=== PATIENT | male | born 1955 | race Caucasian/White ===

== ENCOUNTER → 2017-08-05 09:50 | Outpatient (CLI) | payer BC, SELFPAY ==
[2017-08-05 09:58] LABS: Microscopic, Urine URINE MICROSCOPIC (MICROSCOPIC)
[2017-08-05 10:07] LABS: Basophils # 0.1 K/mm3 (0-0.2); Basophils % 0.5 % (0.1-2.0); Eosinophils # 0.4 K/mm3 (0.0-0.4); Eosinophils % 4.3 % (0.1-12.0); Hematocrit 48.8 % (42.0-52.0); Hemoglobin 16.2 g/dL (14.1-18.0); Lymphocytes # 3.5 K/mm3 (0.7-4.5); Lymphocytes % 37.9 K/mm3 (10-50); Mean Corpuscular HGB Conc 33.3 g/dL (31.8-35.4); Mean Corpuscular Hemoglobin 31.8 pg (27.0-31.2); Mean Corpuscular Volume 95.6 fl (80-94); Mean Platelet Volume 8.2 fl (7.4-10.4); Monocytes # 0.6 K/mm3 (0.1-1.0); Monocytes % 6.1 % (1.7-9.3); Neutrophils # 4.7 K/mm3 (1.8-7.8); Neutrophils % 51.2 % (37.0-80.0); Platelet Count 273 K/mm3 (142-424); Red Cell Distribution Width 13.4 % (11.5-17.5); White Blood Count 9.3 K/mm3 (4.8-10.8)
[2017-08-05 10:17] LABS: Appearance,Urine CLEAR (Clear); Bilirubin,Urine Negative (Negative); Blood, Urine Negative (Negative); Color,Urine YELLOW (Yellow); Glucose,Urine (UA) Negative (Negative); Ketones,Urine Negative (Negative); Leukocyte Esterase,Urine Negative (Negative); Nitrate,Urine Negative (Negative); Protein,Urine Negative (Negative); Specific Gravity, Urine 1.025 (1.005-1.030); Urobilinogen,Urine 0.2 EU/dl (0.2)
[2017-08-05 10:27] LABS: Squamous Epithelial Cell,Urine Occasional #/hpf (0-5)
[2017-08-05 11:31] LABS: Alanine Aminotransferase 73 U/L (12-78); Albumin Level 3.9 gm/dL (3.4-5.0); Albumin/Globulin Ratio 1.3 (1.1-1.8); Alkaline Phosphatase 61 U/L (46-116); Anion Gap 12.5 mEq/L (5-15); Aspartate Amino Transferase 28 U/L (15-37); Bilirubin,Total 0.4 mg/dL (0.2-1.0); Blood Urea Nitrogen 22 mg/dL (7-18); Carbon Dioxide 27 mmol/L (21.0-32.0); Chloride 103 mmol/L (98-107); Chol/HDL Ratio 3.5 (1-3.5); Cholesterol 192 mg/dL (140-200); Creatinine,Serum 0.92 mg/dL (0.70-1.30); Estimated Glomerular Filt Rate 84 ml/min (>60); Free T4 (Free Thyroxine) 0.92 ng/dl (0.76-1.46); GFR (African American) 102 ML/MIN (>60); Globulin 3.1 gm/dl (1.3-3.2); Glucose 156 mg/dL (74-106); HDL Cholesterol 55 mg/dL (27-67); LDL Cholesterol 117 mg/dL (0-130); Potassium 4.5 mmoL/L (3.5-5.1); Sodium 138 mmol/L (136-145); Thyroid Stimulating Hormone 3.16 uIU/ml (0.358-3.740); Triglycerides 101 mg/dL (30-200); VLDL Cholesterol 20 mg/dL (0-40)
[2017-08-05 12:40] LABS: Prostate Specific Ag Screen 0.6 ng/mL (0.0-4.0)
[2017-08-06 11:18] LABS: Creatinine, Urine 183.8 mg/dL (Not Estab.); Microalbumin, Urine 16.4 ug/mL (Not Estab.)
== END ==
PROVIDERS: PCP Family Medicine; Visit Provider Family Medicine
DX: E11.9 Type 2 diabetes mellitus without complications (principal); I10 Essential (primary) hypertension; E78.5 Hyperlipidemia, unspecified; E66.9 Obesity, unspecified; N40.0 Benign prostatic hyperplasia without lower urinary tract symptoms; R35.1 Nocturia
CPT/HCPCS: 36415; 80053; 80061; 81001; 82043; 82570; 84439; 84443; 85025; G0103

== ENCOUNTER → 2019-12-30 08:39 | Outpatient (CLI) | payer BC, SELFPAY ==
[2019-12-30 08:43] LABS: Microscopic, Urine URINE MICROSCOPIC (MICROSCOPIC)
[2019-12-30 09:04] LABS: Appearance,Urine CLEAR (Clear); Basophils # 0.1 K/mm3 (0-0.2); Basophils % 0.5 % (0.1-2.0); Bilirubin,Urine Negative (Negative); Blood, Urine Negative (Negative); Color,Urine YELLOW (Yellow); Eosinophils # 0.2 K/mm3 (0.0-0.4); Eosinophils % 2.3 % (0.1-12.0); Glucose,Urine (UA) Negative (Negative); Hematocrit 45.9 % (42.0-52.0); Ketones,Urine 1+ (Negative); Leukocyte Esterase,Urine Negative (Negative); Lymphocytes # 3.6 K/mm3 (0.7-4.5); Lymphocytes % 40.1 % (10-50); Mean Corpuscular HGB Conc 34.9 g/dL (31.8-35.4); Mean Corpuscular Hemoglobin 33.7 pg (27.0-31.2); Mean Corpuscular Volume 96.6 fl (80-94); Mean Platelet Volume 8.6 fl (7.4-10.4); Monocytes # 0.5 K/mm3 (0.1-1.0); Monocytes % 5.3 % (1.7-9.3); Neutrophils # 4.6 K/mm3 (1.8-7.8); Neutrophils % 51.7 % (37.0-80.0); Nitrate,Urine Negative (Negative); Platelet Count 239 K/mm3 (142-424); Protein,Urine Negative (Negative); Red Blood Count 4.76 M/mm3 (4.60-6.20); Red Cell Distribution Width 13.8 % (11.5-17.5); Specific Gravity, Urine 1.025 (1.005-1.030); Urobilinogen,Urine 0.2 EU/dl (0.2); White Blood Count 8.9 K/mm3 (4.8-10.8)
[2019-12-30 09:22] LABS: RBC,Urine Occasional #/hpf (0-3); Squamous Epithelial Cell,Urine Occasional #/hpf (0-5); WBC,Urine Occasional #/hpf (0-3)
[2019-12-30 09:43] LABS: Alanine Aminotransferase 94 U/L (12-78); Albumin Level 4.5 g/dl (3.5-5.0); Albumin/Globulin Ratio 1.6 (1.1-1.8); Alkaline Phosphatase 97 U/L (38-126); Anion Gap 13.4 mEq/L (5-15); Aspartate Amino Transferase 81 U/L (17-59); Bilirubin,Total 0.5 mg/dl (0.2-1.3); Blood Urea Nitrogen 21 mg/dl (9-20); Calcium 9.4 mg/dl (8.4-10.2); Carbon Dioxide 25 mmol/L (22.0-30.0); Chloride 101 mmol/L (98-107); Chol/HDL Ratio 2.8 (1-3.5); Cholesterol 185 mg/dl (140-200); Estimated Glomerular Filt Rate 114 ml/min (>60); GFR (African American) 138 ML/MIN (>60); Globulin 2.8 g/dL (1.3-3.2); Glucose 182 mg/dl (74-100); HDL Cholesterol 66 mg/dl (40-60); Potassium 4.4 mmoL/L (3.5-5.1); Sodium 135 mmol/L (136-145); Total Protein,Serum 7.3 g/dl (6.3-8.2); Triglycerides 132 mg/dl (30-150); VLDL Cholesterol 26 mg/dL (0-40)
[2019-12-30 09:55] LABS: Direct LDL Cholesterol 116.42 mg/dL (100-129)
[2019-12-30 10:00] LABS: Free T4 (Free Thyroxine) 1.11 ng/dl (0.78-2.19)
[2019-12-30 10:15] LABS: Prostate Specific Ag Screen 0.6 ng/ml (0.0-4.0)
[2019-12-31 11:16] LABS: Vitamin B12 516 pg/mL (232-1245)
[2019-12-31 12:02] LABS: Folate 8.4 ng/mL (>3.0)
== END ==
PROVIDERS: Visit Provider Family Medicine
DX: R53.83 Other fatigue (principal); I10 Essential (primary) hypertension; E11.9 Type 2 diabetes mellitus without complications; N40.0 Benign prostatic hyperplasia without lower urinary tract symptoms; R00.0 Tachycardia, unspecified
CPT/HCPCS: 36415; 80053; 80061; 81001; 82607; 82746; 84439; 84443; 85025; G0103

== ENCOUNTER → 2021-11-19 08:26 | Outpatient (CLI) | payer BC, SELFPAY ==
[2021-11-19 08:51] LABS: Microscopic, Urine URINE MICROSCOPIC (MICROSCOPIC)
[2021-11-19 09:05] LABS: Basophils # 0.2 K/mm3 (0-0.2); Basophils % 2.8 % (0.1-2.0); Eosinophils # 0.2 K/mm3 (0.0-0.4); Eosinophils % 2.2 % (0.1-12.0); Hematocrit 48.8 % (42.0-52.0); Hemoglobin 16.1 g/dL (14.1-18.0); Lymphocytes % 35.7 % (10-50); Mean Corpuscular Hemoglobin 33.7 pg (27.0-31.2); Mean Corpuscular Volume 102.2 fl (80-94); Mean Platelet Volume 8.4 fl (7.4-10.4); Monocytes # 0.5 K/mm3 (0.1-1.0); Monocytes % 6.1 % (1.7-9.3); Neutrophils # 4.4 K/mm3 (1.8-7.8); Neutrophils % 53.1 % (37.0-80.0); Platelet Count 289 K/mm3 (142-424); Red Blood Count 4.77 M/mm3 (4.60-6.20); Red Cell Distribution Width 13.8 % (11.5-17.5); White Blood Count 8.3 K/mm3 (4.8-10.8)
[2021-11-19 09:44] LABS: Alanine Aminotransferase 127 U/L (12-78); Albumin Level 4.4 g/dl (3.5-5.0); Albumin/Globulin Ratio 1.6 (1.1-1.8); Alkaline Phosphatase 76 U/L (38-126); Amylase 33 U/L (30-110); Anion Gap 14.8 mEq/L (5-15); Aspartate Amino Transferase 113 U/L (17-59); Bilirubin,Total 0.2 mg/dl (0.2-1.3); Blood Urea Nitrogen 18 mg/dl (9-20); Calcium 9.9 mg/dl (8.4-10.2); Carbon Dioxide 26 mmol/L (22.0-30.0); Chloride 102 mmol/L (98-107); Cholesterol 245 mg/dl (140-200); Estimated Glomerular Filt Rate 75 ml/min (>60); GFR (African American) 91 ML/MIN (>60); Globulin 2.7 g/dL (1.3-3.2); Glucose 89 mg/dl (74-100); HDL Cholesterol 62 mg/dl (40-60); Lipase 32 U/L (23-300); Potassium 4.8 mmoL/L (3.5-5.1); Sodium 138 mmol/L (136-145); Total Protein,Serum 7.1 g/dl (6.3-8.2); Triglycerides 193 mg/dl (30-150); VLDL Cholesterol 39 mg/dL (0-40)
[2021-11-19 10:01] LABS: Free T4 (Free Thyroxine) 0.98 ng/dl (0.78-2.19)
[2021-11-19 10:15] LABS: Prostate Specific Ag Screen 0.8 ng/ml (0.0-4.0); Thyroid Stimulating Hormone 1.76 uIU/mL (0.465-4.68)
[2021-11-19 15:43] LABS: Appearance,Urine CLEAR (Clear); Bilirubin,Urine Negative (Negative); Blood, Urine Negative (Negative); Color,Urine YELLOW (Yellow); Glucose,Urine (UA) Negative (Negative); Ketones,Urine 1+ (Negative); Leukocyte Esterase,Urine Negative (Negative); Nitrate,Urine Negative (Negative); PH,Urine 5.5 (5.0-8.5); Protein,Urine TRACE (Negative); Specific Gravity, Urine >= 1.030 (1.005-1.030); Urobilinogen,Urine 0.2 EU/dl (0.2)
[2021-11-19 15:58] LABS: Bacteria,Urine Trace /lpf; Microalbumin/Creatinine Ratio 26.5; Mucus,Urine 2+ /lpf; Squamous Epithelial Cell,Urine Occasional #/hpf (0-5); WBC,Urine Occasional #/hpf (0-3)
[2021-11-19 15:59] LABS: Creatinine,Urine Random 299 mg/dL (Not Estab.)
== END ==
PROVIDERS: PCP Family Medicine; Visit Provider Family Medicine
DX: I25.10 Atherosclerotic heart disease of native coronary artery without angina pectoris (principal); I10 Essential (primary) hypertension; E78.5 Hyperlipidemia, unspecified; E11.9 Type 2 diabetes mellitus without complications; R97.20 Elevated prostate specific antigen [PSA]; R35.1 Nocturia; Z12.5 Encounter for screening for malignant neoplasm of prostate
CPT/HCPCS: 36415; 80053; 80061; 81001; 82043; 82150; 82570; 83690; 84439; 84443; 85025; G0103

== ENCOUNTER → 2022-05-11 07:52 | Outpatient (CLI) | payer BC, SELFPAY ==
--- NOTE | 2022-05-11 07:54 | FL_ITS ---
FINAL REPORT CLINICAL HISTORY: Dysphagia, epigastric pain. FINDINGS: ESOPHAGRAM HISTORY: Dysphagia, epigastric pain. TECHNIQUE: Patient ingested thick and thin barium contrast. Spot and overhead films were performed. A total of 19 images were saved. FINDINGS: The esophagus demonstrates a small sliding-type hiatal hernia. There is gastroesophageal reflux to the thoracic inlet. No mucosal defects are seen. There is mild esophageal dysmotility. No changes of esophagitis are evident. FLUOROSCOPY TIME: 47 seconds. IMPRESSION: Small hiatal hernia with gastroesophageal reflux. Mild esophageal dysmotility. Reviewed, Interpreted and Dictated by Triston Ba MD Transcribed by Zulema Chavez PA-C Authenticated and [facility]
== END ==
PROVIDERS: PCP Emergency Medicine; Visit Provider Emergency Medicine
DX: R13.10 Dysphagia, unspecified (principal)
CPT/HCPCS: 74220

== ENCOUNTER → 2022-05-15 08:59 | Outpatient (CLI) | payer BC, SELFPAY ==
[2022-05-15 09:04] LABS: MANUAL DIFFERENTIAL MANUAL DIFFERENTIAL (MANUAL DIFF)
[2022-05-15 09:22] LABS: Basophils # 0.2 K/mm3 (0-0.2); Basophils % 1.6 % (0.1-2.0); Eosinophils # 0.2 K/mm3 (0.0-0.4); Eosinophils % 2.1 % (0.1-12.0); Hematocrit 52.9 % (42.0-52.0); Hemoglobin 16.8 g/dL (14.1-18.0); Lymphocytes # 3.4 K/mm3 (0.7-4.5); Lymphocytes % 31.8 % (10-50); Mean Corpuscular HGB Conc 31.7 g/dL (31.8-35.4); Mean Corpuscular Hemoglobin 33.6 pg (27.0-31.2); Mean Corpuscular Volume 105.8 fl (80-94); Monocytes # 0.7 K/mm3 (0.1-1.0); Monocytes % 6.5 % (1.7-9.3); Neutrophils # 6.2 K/mm3 (1.8-7.8); Platelet Count 276 K/mm3 (142-424); Red Cell Distribution Width 13.9 % (11.5-17.5); White Blood Count 10.6 K/mm3 (4.8-10.8)
[2022-05-15 10:04] LABS: Erythrocyte Sedimentation Rate 17 mm/hr (0-20)
[2022-05-15 10:08] LABS: Eosinophils % 1 % (0-3); Lymphocytes % 33 % (10-50); Macrocytosis 2+; Monocytes % 5 % (2-9); Neutrophils % 59 % (42-76); Platelet Estimate Normal; Total Cells Counted 100
[2022-05-15 10:20] LABS: Chloride 96 mmol/L (98-107); Potassium 4.7 mmoL/L (3.5-5.1); Sodium 137 mmol/L (136-145)
[2022-05-15 10:22] LABS: Blood Urea Nitrogen 15 mg/dl (9-20); Estimated Glomerular Filt Rate 75 ml/min (>60); GFR (African American) 91 ML/MIN (>60)
[2022-05-15 10:23] LABS: Alanine Aminotransferase 54 U/L (12-78); Albumin Level 4.3 g/dl (3.5-5.0); Albumin/Globulin Ratio 1.6 (1.1-1.8); Alkaline Phosphatase 86 U/L (38-126); Anion Gap 15.7 mEq/L (5-15); Aspartate Amino Transferase 66 U/L (17-59); Bilirubin,Total 0.7 mg/dl (0.2-1.3); Calcium 10.3 mg/dl (8.4-10.2); Carbon Dioxide 30 mmol/L (22.0-30.0); Globulin 2.7 g/dL (1.3-3.2); Glucose 178 mg/dl (74-100)
[2022-05-15 11:06] LABS: Ammonia < 9 umol/L (9-30)
[2022-05-15 11:35] LABS: Vitamin B12 553 pg/mL (239-931)
[2022-05-15 11:37] LABS: Folate 5.15 ng/mL
[2022-05-18 19:59] LABS: Vitamin B1 115.4 nmol/L (66.5-200.0)
== END ==
PROVIDERS: PCP Emergency Medicine; Visit Provider Specialist
DX: R25.1 Tremor, unspecified (principal); R27.8 Other lack of coordination; R79.89 Other specified abnormal findings of blood chemistry
CPT/HCPCS: 36415; 80053; 82140; 82390; 82607; 82746; 84425; 85007; 85014; 85018; 85048; 85049; 85651

== ENCOUNTER → 2022-05-23 09:58 | Outpatient (CLI) | payer BC, SELFPAY ==
--- NOTE | 2022-05-23 10:29 | MR_ITS ---
FINAL REPORT CLINICAL HISTORY: DIZZINESS TREMORS STARTED IN DECEMBER 2021 FINDINGS: Multi planar MR imaging was obtained through the brain without contrast. There is mild atrophy. The midline structures appear intact. There is no evidence of Chiari malformation. On T2 and flair axial images the brain parenchyma is homogeneous. On diffusion-weighted images there is no evidence of restricted diffusion. There is extensive lobular abnormal signal throughout the frontal sinuses, ethmoid air cells, left maxillary sinus and sphenoid sinuses. The mastoid air cells are well aerated. The seventh and eighth nerve root complexes are intact. IMPRESSION: Essentially unremarkable nonenhanced brain MRI. Extensive chronic pansinusitis. Reviewed, Interpreted and Dictated by Triston Ba MD Transcribed by Stella Hart Authenticated and [facility]
[2022-05-24 18:07] LABS: Calcium, Ionized 5.9 mg/dL (4.5-5.6)
[2022-06-09 20:29] LABS: PTH Related Peptide < 2.0
== END ==
PROVIDERS: Specialist; PCP Emergency Medicine; Visit Provider Nurse Practitioner Family
DX: R27.8 Other lack of coordination (principal); R25.1 Tremor, unspecified; E83.52 Hypercalcemia
CPT/HCPCS: 36415; 70551; 82330; 82397

== ENCOUNTER → 2022-06-01 10:21 | Outpatient (CLI) | payer BC, SELFPAY | PROVIDERS: PCP Emergency Medicine; Visit Provider Specialist | DX: J44.9 Chronic obstructive pulmonary disease, unspecified (principal) ==

== ENCOUNTER 2022-06-12 12:32 | Day surgery (SDC) | payer BC, SELFPAY ==
[2022-06-11 08:49] VITALS: BMI 28.8
--- NOTE | 2022-06-11 09:05 | SUR.PREOP ---
Pt on Xarelto for stents in his legs placed 20 years ago. Has not been instructed on stopping for EGD tomorrow. TC to Dr. Jeter who is prescriber and spoke with Chanel. Said okay to hold Xarelto today. Pt aware.
[2022-06-12 12:48] VITALS: BP 129/77; PULSE 103; RESP 18; TEMP 36.4; O2SAT 96
[2022-06-12 12:55] LABS: POC Glucose,Bedside 167 (70-110)
[2022-06-12 13:02] VITALS: O2SAT 96
--- NOTE | 2022-06-12 13:17 | P.PN_ITS ---
[facility] Disclaimer: The information contained in this section may have been updated after the patient was seen, as this information can be updated by other users. Medical History (Updated 06/12/22 @ 12:55 by Merry Kirby RN) Arthritis Diabetes 1.5, managed as type 2 Diabetes mellitus, type 2 Emphysema/COPD Encounter for cholecystectomy Hyperlipidemia Hypertension Lymphoma of lymph nodes Psoriasiform eczema Rapid heart rate Seasonal allergies Stomach disease Surgical History H/O left heart catheterization by ventricular puncture History of cholecystectomy Family History Other No significant family history Social History (Updated 06/12/22 @ 12:55 by Merry Kirby RN) Smoking Status: Current every day smoker alcohol intake: current substance use type: denies use current occupational status: retired Travel in the last 8 weeks: None caffeine: Yes [facility] Anesthesia Checklist Patient Identification Patient Identification: Arm Band Structural Data Admitted From: Home Planned Operative Procedure/s: egd Consent for Planned Operative Procedure(s) Verified: Yes Verified Documents: Surgical Consent and History and Physical NPO Status Verified Time NPO: 00:00 Additional verifications Anesthesia Reactions: No Airway Assessment C-Spine Mobility Assessed: Yes TMJ Mobility Assessed: Yes Dentition: Good Dentition Neurological Assessment Level of Consciousness: Awake and Alert Anesthesia Plan Anesthesia Risk discussed: Yes Anesthesia Plan: Verified ASA Class: III Anesthesia Type: MAC
[2022-06-12 13:20] VITALS: BP 104/67; PULSE 83; RESP 18; TEMP 36.3; O2SAT 93
--- NOTE | 2022-06-12 13:20 | HMH.SCOPE ---
Procedure: Date: 06/12/22 Patient Date of :: 1955 Procedure Performed:: Esophagogastroduodenoscopy with biopsy Indications:: Upper abdominal pain Performing Provider:: Bruce Edmond MD Referring Provider:: . Sedation:: Monitored anesthesia care Procedure:: After informed consent was obtained the patient was taken to the endoscopy suite. Sedation ensued after the patient was transferred to the left lateral decubitus position. Pulse, blood pressure, and oxygen saturation were monitored throughout the procedure. The endoscope was advanced beyond the duodenal bulb. Retroflexion within the gastric lumen was accomplished. The gastroscope was carefully removed and the patient was transferred to recovery in stable condition. Please see findings and specimens below for detail. Findings:: Gastroesophageal junction at 40 cm Small shallow sliding hiatal hernia Moderate tortuosity of the distal esophagus Mild to moderate gastritis Duodenal bulb polyp Specimens:: Duodenal bulb polyp biopsy Antral biopsy Recommendations:: Follow-up pathology Proton pump inhibition Consider gastroenterology consultation; consider UGI/SBFT; consider gastric emptying scan Complications:: No immediate Estimated blood obtained (mL): 1
[2022-06-12 13:30] VITALS: BP 110/72; PULSE 75; RESP 17; O2SAT 92
[2022-06-12 13:40] VITALS: BP 153/91; PULSE 74; RESP 16; O2SAT 95
[2022-06-12 13:52] VITALS: BP 129/76; PULSE 76; RESP 17; O2SAT 96
== END 2022-06-12 13:55 | disposition home or self-care (01) ==
PROVIDERS: PCP Emergency Medicine; Visit Provider Surgery
PROC: 0DJ08ZZ Inspection of Upper Intestinal Tract, Via Natural or Artificial Opening Endoscopic (ICD-10-PCS; CPT 43235; principal; 2022-06-12 13:30)
DX: R10.13 Epigastric pain (principal); K44.9 Diaphragmatic hernia without obstruction or gangrene; K29.70 Gastritis, unspecified, without bleeding; Z79.899 Other long term (current) drug therapy; E11.9 Type 2 diabetes mellitus without complications
CPT/HCPCS: 43239; 82962

== ENCOUNTER → 2022-06-14 14:21 | Outpatient (CLI) | payer BC, SELFPAY | PROVIDERS: PCP Emergency Medicine; Visit Provider Specialist | DX: J44.9 Chronic obstructive pulmonary disease, unspecified (principal) | CPT/HCPCS: 94762 ==

== ENCOUNTER 2023-01-21 11:49 | Emergency (ER) | payer MEDICARE, BC, SELFPAY ==
[2023-01-21] VITALS (12 sets, daily range): BP systolic 137–170; BP diastolic 80–93; PULSE 77–95; RESP 20; TEMP 36.8; O2SAT 96–99; BMI 29.6
--- NOTE | 2023-01-21 11:49 | ECG_ITS ---
APPROVED REPORT Exam: Resting ECG HR:101 bpm ECG Measurements Heart Rate 101 AXES DE 163 P 76 QRSd 90 QRS 65 QT 315 T 45 QTc 373 Conclusion SINUS TACHYCARDIA ABNORMAL RHYTHM ECG UNCONFIRMED REPORT Electronically signed by : Venkata Moran MD 01/21/2023 19:48:55
--- NOTE | 2023-01-21 12:07 | XR_ITS ---
FINAL REPORT CLINICAL HISTORY: Precordial chest pain COMPARISON: None FINDINGS: A single portable view of the chest was obtained. The heart size and pulmonary vascularity are within normal limits. The mediastinum is within normal limits. No acute pulmonary abnormality is identified. The bony thorax is intact. IMPRESSION: No active cardiopulmonary disease. Reviewed, Interpreted and Dictated by Chavo Dietrich III, MD Transcribed by Stormy Pop Authenticated and [facility]
[2023-01-21 12:19] LABS: Basophils % 0.4 % (0.1-2.0); Eosinophils # 0.2 K/mm3 (0.0-0.4); Eosinophils % 1.9 % (0.1-12.0); Hematocrit 53.7 % (42.0-52.0); Lymphocytes # 2.5 K/mm3 (0.7-4.5); Lymphocytes % 29.5 % (10-50); Mean Corpuscular HGB Conc 31.7 g/dL (31.8-35.4); Mean Corpuscular Hemoglobin 32.4 pg (27.0-31.2); Mean Corpuscular Volume 102.4 fl (80-94); Mean Platelet Volume 8.3 fl (7.4-10.4); Monocytes # 0.6 K/mm3 (0.1-1.0); Monocytes % 6.5 % (1.7-9.3); Neutrophils # 5.3 K/mm3 (1.8-7.8); Neutrophils % 61.7 % (37.0-80.0); Platelet Count 310 K/mm3 (142-424); Red Blood Count 5.24 M/mm3 (4.60-6.20); Red Cell Distribution Width 13.8 % (11.5-17.5); White Blood Count 8.6 K/mm3 (4.8-10.8)
[2023-01-21 12:21] LABS: Chloride 97 mmol/L (98-107); Potassium 4.8 mmoL/L (3.5-5.1); Sodium 134 mmol/L (136-145)
[2023-01-21 12:24] LABS: Alanine Aminotransferase 88 U/L (12-78); Albumin Level 4.6 g/dl (3.5-5.0); Albumin/Globulin Ratio 1.4 (1.1-1.8); Alkaline Phosphatase 79 U/L (38-126); Anion Gap 15.8 mEq/L (5-15); Aspartate Amino Transferase 87 U/L (17-59); Bilirubin,Total 0.7 mg/dl (0.2-1.3); Blood Urea Nitrogen 22 mg/dl (9-20); Carbon Dioxide 26 mmol/L (22.0-30.0); Creatinine Clearance Estimated 92 mL/min (50-200); Estimated Glomerular Filt Rate 75 ml/min (>60); GFR (African American) 91 ML/MIN (>60); Globulin 3.3 g/dL (1.3-3.2); Total Protein,Serum 7.9 g/dl (6.3-8.2)
[2023-01-21 12:25] LABS: Calcium 10.3 mg/dl (8.4-10.2); Glucose 376 mg/dl (74-100)
--- NOTE | 2023-01-21 12:41 | HMH.EDGENADL ---
Discharge Plan Disposition Patient Disposition: Home, Self-Care Prescriptions Prescriptions: No Action Livalo 4 mg tablet 4 mg PO DAILY (DME) insulin syringe-needle U-100 [BD Insulin Syringe Ultra-Fine] 1 mL 31 gauge x 5/16 syringe See Rx Instructions .Route Rx Instructions: As directed nitroglycerin 0.4 mg tablet, sublingual 0.4 mg sublingual Q5M PRN (Reason: CP) Rx Instructions: do not exceed 3 doses per episode meloxicam 7.5 mg tablet 7.5 mg PO cetirizine 10 mg tablet 10 mg PO fluticasone propionate [Flonase Allergy Relief] 50 mcg/actuation spray,suspension 2 spray intranasal DAILY Qty: 16 3RF Rx Instructions: administer into each nostril azelastine 137 mcg (0.1 %) aerosol,spray 2 spray intranasal DAILY Qty: 30 3RF Rx Instructions: administer into each nostril All Day Allergy (cetirizine) 10 mg capsule 10 mg PO DAILY 30 Days Qty: 30 3RF sucralfate 1 gram tablet See Rx Instructions .ROUTE .COMPLEX Qty: 60 2RF Dose Instruction: TAKE ONE TABLET BY MOUTH 2 TIMES A DAY Rx Instructions: TAKE ONE TABLET BY MOUTH 2 TIMES A DAY Spiriva Respimat 2.5 mcg/actuation mist See Rx Instructions .ROUTE .COMPLEX Qty: 4 2RF Dose Instruction: INHALE 2 PUFFS BY MOUTH ONCE A DAY Rx Instructions: INHALE 2 PUFFS BY MOUTH ONCE A DAY budesonide-formoterol [Symbicort] 160-4.5 mcg/actuation HFA aerosol inhaler See Rx Instructions .ROUTE .COMPLEX Qty: 10.2 2RF Dose Instruction: INHALE 2 PUFFS BY MOUTH TWICE A DAY Rx Instructions: INHALE 2 PUFFS BY MOUTH TWICE A DAY albuterol sulfate 90 mcg/actuation HFA aerosol inhaler See Rx Instructions .ROUTE .COMPLEX Qty: 8.5 2RF Dose Instruction: INHALE 2 PUFFS BY MOUTH EVERY 4 TO 6 HOURS NEEDED SHORTNESS OF BREATH OR WHEEZING Rx Instructions: INHALE 2 PUFFS BY MOUTH EVERY 4 TO 6 HOURS NEEDED SHORTNESS OF BREATH OR WHEEZING metoclopramide HCl 10 mg tablet See Rx Instructions .ROUTE .COMPLEX Qty: 90 2RF Dose Instruction: TAKE ONE TABLET BY MOUTH 3 TIMES A DAY 30 MINUTES BEFORE MEALS FOR STOMACH Rx Instructions: TAKE ONE TABLET BY MOUTH 3 TIMES A DAY 30 MINUTES BEFORE MEALS FOR STOMACH esomeprazole magnesium 40 mg capsule,delayed release(DR/EC) See Rx Instructions .ROUTE .COMPLEX Qty: 30 2RF Dose Instruction: TAKE ONE CAPSULE BY MOUTH ONCE A DAY FOR ACID REFLUX Rx Instructions: TAKE ONE CAPSULE BY MOUTH ONCE A DAY FOR ACID REFLUX metformin 500 mg tablet See Rx Instructions .ROUTE .COMPLEX Qty: 60 2RF Dose Instruction: TAKE 1 TABLET BY MOUTH 2 TIMES A DAY FOR HIGH BLOOD SUGAR Rx Instructions: TAKE 1 TABLET BY MOUTH 2 TIMES A DAY FOR HIGH BLOOD SUGAR (DME) OneTouch Ultra Test Strip See Rx Instructions .Route Qty: 100 2RF Rx Instructions: As directed montelukast 10 mg tablet See Rx Instructions .ROUTE .COMPLEX Qty: 30 2RF Dose Instruction: TAKE ONE TABLET BY MOUTH EVERY NIGHT FOR ALLERGIES/ASTHMA Rx Instructions: TAKE ONE TABLET BY MOUTH EVERY NIGHT FOR ALLERGIES/ASTHMA Xarelto 2.5 mg tablet See Rx Instructions .ROUTE .COMPLEX Qty: 30 2RF Dose Instruction: TAKE ONE TABLET BY MOUTH ONCE A DAY TO PREVENT BLOOD CLOTTING Rx Instructions: TAKE ONE TABLET BY MOUTH ONCE A DAY TO PREVENT BLOOD CLOTTING metoprolol tartrate 25 mg tablet See Rx Instructions .ROUTE .COMPLEX Qty: 60 2RF Dose Instruction: TAKE ONE TABLET BY MOUTH 2 TIMES A DAY FOR HEART/BLOOD PRESSURE Rx Instructions: TAKE ONE TABLET BY MOUTH 2 TIMES A DAY FOR HEART/BLOOD PRESSURE lisinopril 20 mg tablet See Rx Instructions .ROUTE .COMPLEX Qty: 60 2RF Dose Instruction: TAKE ONE TABLET BY MOUTH 2 TIMES A DAY FOR BLOOD PRESSURE Rx Instructions: TAKE ONE TABLET BY MOUTH 2 TIMES A DAY FOR BLOOD PRESSURE hydroxyzine HCl 25 mg tablet See Rx Instructions .ROUT
[2023-01-21 12:50] LABS: Troponin I < 0.01 ng/ml (0.00-0.034)
[2023-01-21 13:12] LABS: T4 (Thyroxine) 10.4 ug/dl (5.53-11.0)
[2023-01-21 13:25] LABS: Thyroid Stimulating Hormone 1.68 uIU/mL (0.465-4.68)
--- NOTE | 2023-01-21 14:21 | PC.NURSE ---
CHECKED ON PT NO NEEDS AT THIS TIME,CALL LIGHT AT BS
--- NOTE | 2023-01-21 15:12 | PC.NURSE ---
pt resting in bed no needs at this time,call light at bs
[2023-01-21 15:50] LABS: Troponin I < 0.01 ng/ml (0.00-0.034)
== END 2023-01-21 16:46 | disposition home or self-care (01) ==
PROVIDERS: Emergency Provider Emergency Medicine; PCP Emergency Medicine
DX: R07.9 Chest pain, unspecified (principal); R68.84 Jaw pain; R11.0 Nausea; E11.9 Type 2 diabetes mellitus without complications; I10 Essential (primary) hypertension; E78.5 Hyperlipidemia, unspecified; J44.9 Chronic obstructive pulmonary disease, unspecified; F17.200 Nicotine dependence, unspecified, uncomplicated
CPT/HCPCS: 71045; 80053; 84436; 84443; 84484; 85025; 93005; 96360; 99285

== ENCOUNTER → 2023-01-24 13:35 | Outpatient (CLI) | payer MEDICARE, BC, SELFPAY | PROVIDERS: PCP Emergency Medicine; Visit Provider Emergency Medicine | DX: R55 Syncope and collapse (principal) | CPT/HCPCS: 93225 ==

== ENCOUNTER → 2023-02-18 14:59 | Outpatient (CLI) | payer MEDICARE, BC, SELFPAY ==
--- NOTE | 2023-02-18 15:06 | CA_ITS ---
APPROVED REPORT EXAM: Comprehensive 2D, Doppler, and color-flow Echocardiogram Cellophane Bag Machine Operator: Lorena Bentley RDCS Ht: 5 ft 8 in Wt: 198lbs BSA: 2.03 BP: 151/88 mmHg Indications: PALPS,PAD,SYNCOPE,COPD,HTN,DM,HLP 2D Dimensions LVOT 1.80 cm (M/F) 1.5-2.5 M-Mode Dimensions RVDd 3.38 cm (0.9-2.6) LA Diam 4.20 cm (1.9-4.0) LVDd 5.23 cm (3.5-5.7) Ao Diam 3.15 cm (2.0-3.7) LVDs 3.74 cm (3.5-5.7) IVSd 0.56 cm (0.6-1.1) PWd 0.76 cm (0.6-1.1) EF (Teich) 54.60% FS 28.50% EDV (Teich) 131.20 mL TAPSE 1.65 (<1.7) ESV (Teich) 59.60 mL LV Diastology E Decel Time 213.00 (160-240 msec) E/A Ratio 0.7 MED E' 6.00 (< 7 cm/sec) E'/MED E' Ratio 8.48 (>14) LAT E' 6.20 (<10 cm/sec) E/LAT E' Ratio 8.21 (>14) Mitral Valve MV E Max Fili. 51.00 (40-130 cm/s) MV A Velocity 69.00 (40-130 cm/s) E/A Ratio 0.74 MV Decel. Time 213.00 (160-240 ms) MV PHT 62.00 ms Left Ventricle The left ventricle is normal size. The left ventricular systolic function is normal. The left ventricular ejection fraction is within the normal range. There is increased LV wall thickness. There is normal LV segmental wall motion. The left ventricular diastolic function is normal. LVEF is 60%. Right Ventricle The right ventricle is moderately dilated. The right ventricular systolic function is normal. Atria The left atrium size is normal. The right atrium size is normal. There is no Doppler evidence of interatrial shunt. Aortic Valve The aortic valve is mildly thickened. There is no aortic valvular stenosis. No aortic regurgitation is present. Mitral Valve The mitral valve is normal in structure. No evidence of mitral valve stenosis. Trace mitral regurgitation. Tricuspid Valve The tricuspid valve leaflets are thin and pliable. Trace tricuspid regurgitation. There is insufficient TR jet to estimate RVSP. Pulmonic Valve The pulmonary valve is normal in structure. Trace pulmonic regurgitation. Great Vessels The aortic root is normal in size. The ascending aorta is not well visualized. IVC is normal in size and collapses >50% with inspiration. Pericardium There is no pericardial effusion. Other Information Study Quality: Fair Conclusion Normal biventricular systolic function. Mild RV dilation with normal RV function. No significant valvular disease. Electronically signed by : Lois Hammond, 02/20/2023 11:01:22
== END ==
PROVIDERS: PCP Emergency Medicine; Visit Provider Emergency Medicine
DX: R55 Syncope and collapse (principal)
CPT/HCPCS: 93306

== ENCOUNTER → 2023-04-23 14:36 | Outpatient (CLI) | payer MEDICARE, BC, SELFPAY ==
--- NOTE | 2023-04-23 14:36 | CT_ITS ---
FINAL REPORT CLINICAL HISTORY: lung cancer screening CURRENT SMOKER 1PPD X50 YEARS COMPARISON: None FINDINGS: CT CHEST LOW DOSE SCREENING HISTORY: Screening exam for lung cancer. 67-year-old male, Current smoker, 50 pack year smoking history DOSE: CTDIvol: 2.9 mGy, DLP: 101.34 mGy*cm COMPARISON: None . TECHNIQUE: Axial CT without IV contrast administration using low dose protocol FINDINGS: No acute lung disease is present . No pulmonary lesions are seen suspicious for neoplasm. Several calcified granulomas are identified. The gallbladder has been surgically resected. There is a 23 mm nodule present in the right adrenal gland, and a 16 mm nodule present in the left adrenal gland, would favor adenomas as the etiology. No pleural or pericardial effusion is seen . No adenopathy or mass lesion is present . IMPRESSION: No nodules or masses are identified, no significant adenopathy. , Likely adenomas. LUNG RADS CATEGORY 1 RECOMMENDATION: 12 month LDCT follow up Reviewed, Interpreted and Dictated by Chavo Dietrich III, MD Transcribed by Rocío Deshpande Authenticated and [facility]
== END ==
PROVIDERS: PCP Emergency Medicine; Visit Provider Emergency Medicine
DX: Z87.891 Personal history of nicotine dependence (principal); Z12.2 Encounter for screening for malignant neoplasm of respiratory organs
CPT/HCPCS: 71271

== ENCOUNTER 2023-07-03 14:40 | Outpatient (CLI) | payer MEDICARE, BC, SELFPAY ==
[2023-07-03 15:27] LABS: Chloride 96 mmol/L (98-107); Potassium 4.6 mmoL/L (3.5-5.1); Sodium 132 mmol/L (136-145)
[2023-07-03 15:30] LABS: Anion Gap 14.6 mEq/L (5-15); Blood Urea Nitrogen 31 mg/dl (9-20); Calcium 9.5 mg/dl (8.4-10.2); Carbon Dioxide 26 mmol/L (22.0-30.0); Estimated Glomerular Filt Rate 55 ml/min (>60); GFR (African American) 67 ML/MIN (>60); Glucose 259 mg/dl (74-100)
== END 2023-07-03 23:59 ==
PROVIDERS: PCP Internal Medicine; Visit Provider Internal Medicine
DX: E11.9 Type 2 diabetes mellitus without complications (principal); I73.9 Peripheral vascular disease, unspecified; J44.9 Chronic obstructive pulmonary disease, unspecified; R00.2 Palpitations; Z01.810 Encounter for preprocedural cardiovascular examination; Z72.0 Tobacco use; Z98.890 Other specified postprocedural states; Z79.84 Long term (current) use of oral hypoglycemic drugs; I47.10 Supraventricular tachycardia, unspecified
CPT/HCPCS: 36415; 80048

== ENCOUNTER 2023-07-08 18:14 | Outpatient (CLI) | payer MEDICARE, BC, SELFPAY ==
[2023-07-08 19:39] LABS: Barbiturates Screen,Urine Negative ng/ml (<200)
[2023-07-08 19:40] LABS: Benzodiazepines Screen,Urine Negative ng/ml (<200)
[2023-07-08 19:42] LABS: Cocaine Screen,Urine Negative ng/ml (<300); Opiate Screen,Urine Negative ng/ml (<300)
[2023-07-08 19:43] LABS: Phencyclidine Screen,Urine Negative ng/ml (<25)
[2023-07-08 19:48] LABS: Cannabinoid Screen,Urine Positive ng/ml (<50)
[2023-07-08 19:53] LABS: Methadone Screen,Urine Negative ng/ml (<300)
[2023-07-08 21:39] LABS: Amphetamine/Metha Screen,Urine Negative ng/ml (<1000)
== END 2023-07-08 23:59 ==
LOC: LAB.DROPOF 18:15
PROVIDERS: Visit Provider Family Medicine
DX: Z79.899 Other long term (current) drug therapy (principal)
CPT/HCPCS: 80307

== ENCOUNTER 2024-03-13 16:49 | Outpatient (CLI) | payer MEDICARE, BC, SELFPAY ==
[2024-03-13 17:05] LABS: Microalbumin/Creatinine Ratio 24.8
[2024-03-13 17:08] LABS: Creatinine,Urine Random 129 mg/dL (Not Estab.)
[2024-03-16 14:44] LABS: Cholesterol 190 mg/dl (140-200); HDL Cholesterol 47 mg/dl (40-60); Triglycerides 148 mg/dl (30-150); VLDL Cholesterol 30 mg/dL (0-40)
[2024-03-16 15:53] LABS: Direct LDL Cholesterol 109.33 mg/dL (100-129)
[2024-03-16 17:02] LABS: Hemoglobin A1C 7.4 % (4.0-6.0)
[2024-03-19 14:15] LABS: Antipancreatic islet cell antb Negative (Neg:<1:1)
[2024-03-19 16:14] LABS: GAD-65 <5.0 U/mL (0.0-5.0)
== END 2024-03-13 23:59 | disposition home or self-care (01) ==
LOC: LAB.DROPOF 16:50
PROVIDERS: PCP Internal Medicine; Visit Provider Internal Medicine
DX: E11.9 Type 2 diabetes mellitus without complications (principal); J32.4 Chronic pansinusitis; E78.5 Hyperlipidemia, unspecified; Z13.220 Encounter for screening for lipoid disorders
CPT/HCPCS: 80061; 82043; 82570; 83036; 83519; 86341

== ENCOUNTER 2024-08-14 06:02 | Emergency (ER) | payer MEDICARE, MEDICAID, SELFPAY ==
[2024-08-14 06:08] VITALS: BP 164/98; PULSE 90; RESP 20; TEMP 36.6; O2SAT 99; BMI 28.5
--- NOTE | 2024-08-14 06:08 | ED_ITS ---
Discharge Plan Disposition Patient Disposition: Home, Self-Care Condition: Fair Prescriptions Prescriptions: New methocarbamol 500 mg tablet 1,000 mg PO Q6H PRN (Reason: pain) Qty: 30 0RF lidocaine 5 % adhesive patch,medicated 1 patch topical DAILY PRN (Reason: pain) Qty: 30 0RF Rx Instructions: leave on most painful area for up to 12 hrs No Action tacrolimus 0.1 % ointment topical metoprolol succinate [Toprol XL] 100 mg tablet extended release 24 hr 100 mg PO DAILY Qty: 90 3RF valsartan-hydrochlorothiazide 320-25 mg tablet 1 tab PO DAILY Qty: 90 3RF Zyrtec 10 mg capsule 10 mg PO DAILY PRN Humulin 70/30 U-100 Insulin 100 unit/mL (70-30) suspension See Rx Instructions .ROUTE .COMPLEX Qty: 40 2RF Dose Instruction: INJECT 65 UNITS SUBCUTANEOUSLY EVERY MORNING AND 65 UNITS EVERY EVENING Rx Instructions: INJECT 35 UNITS SUBCUTANEOUSLY EVERY MORNING AND 35 UNITS EVERY EVENING acitretin 25 mg capsule 25 mg PO DAILY Qty: 30 0RF (DME) insulin syringe-needle U-100 [BD Veo Insulin Syringe UF] 1 mL 31 gauge x 15/64 syringe See Rx Instructions .ROUTE .MEDSUPPLY Qty: 10 Rx Instructions: As directed Dupixent Pen 300 mg/2 mL pen injector SQ tretinoin 0.1 % cream 1 applic topical HS Qty: 45 0RF prednisone 20 mg tablet 20 mg PO BID Qty: 14 0RF Rx Instructions: Take two tablets on days 1-4. Take one tablet daily on days 5-8. On days 9-12 take one half tablet. metformin 500 mg tablet See Rx Instructions .ROUTE .COMPLEX Qty: 60 0RF Dose Instruction: TAKE 1 TABLET BY MOUTH 2 TIMES A DAY FOR HIGH BLOOD SUGAR Rx Instructions: TAKE 1 TABLET BY MOUTH 2 TIMES A DAY FOR HIGH BLOOD SUGAR (DME) insulin syringe-needle U-100 [BD Insulin Syringe Ultra-Fine] 1 mL 31 gauge x 5/16 syringe See Rx Instructions .Route Rx Instructions: As directed nitroglycerin 0.4 mg tablet, sublingual 0.4 mg sublingual Q5M PRN (Reason: CP) Rx Instructions: do not exceed 3 doses per episode urea 40 % cream 1 applic topical BID 30 Days Qty: 28 3RF (DME) OneTouch Ultra Test Strip See Rx Instructions .Route Qty: 100 2RF Rx Instructions: As directed Xarelto 2.5 mg tablet See Rx Instructions .ROUTE .COMPLEX Qty: 90 1RF Dose Instruction: TAKE ONE TABLET BY MOUTH ONCE A DAY TO PREVENT BLOOD CLOTTING Rx Instructions: TAKE ONE TABLET BY MOUTH ONCE A DAY TO PREVENT BLOOD CLOTTING fexofenadine 180 mg tablet 180 mg PO DAILY Qty: 30 2RF esomeprazole magnesium 40 mg capsule,delayed release(DR/EC) See Rx Instructions .ROUTE .COMPLEX Qty: 90 1RF Dose Instruction: TAKE ONE CAPSULE BY MOUTH ONCE A DAY FOR ACID REFLUX Rx Instructions: TAKE ONE CAPSULE BY MOUTH ONCE A DAY FOR ACID REFLUX montelukast 10 mg tablet See Rx Instructions .ROUTE .COMPLEX Qty: 90 2RF Dose Instruction: TAKE ONE TABLET BY MOUTH EVERY NIGHT FOR ALLERGIES/ASTHMA Rx Instructions: TAKE ONE TABLET BY MOUTH EVERY NIGHT FOR ALLERGIES/ASTHMA ezetimibe 10 mg tablet See Rx Instructions .ROUTE .COMPLEX Qty: 90 1RF Dose Instruction: TAKE ONE TABLET BY MOUTH ONCE A DAY FOR CHOLESTEROL Rx Instructions: TAKE ONE TABLET BY MOUTH ONCE A DAY FOR CHOLESTEROL Jardiance 25 mg tablet See Rx Instructions .ROUTE .COMPLEX Qty: 90 0RF Dose Instruction: TAKE ONE TABLET BY MOUTH ONCE A DAY Rx Instructions: TAKE ONE TABLET BY MOUTH ONCE A DAY fluticasone furoate-vilanterol [Breo Ellipta] 200-25 mcg/dose blister with device See Rx Instructions .ROUTE .COMPLEX Qty: 60 0RF Dose Instruction: INHALE 1 PUFF BY MOUTH ONCE A DAY Rx Instructions: INHALE 1 PUFF BY MOUTH ONCE A DAY (DME) True Metrix Glucose Test Strip Strip See Rx Instructions .Route Rx Instructions: As directed Referrals Follow up/Referrals: Provider,Referral, MD [Primary Care Provider] - See instructions Activity Restrictions/Add. Instructions Additional Instructions/Restrictions: Please take Tylenol and ibuprofen as needed for pain. Please take Robaxin and use lidocaine patches as needed for pain. Please use incentive spirometer as discussed. Clinical Impressions Clinical Impression: Left rib fracture Qualifiers: Encounter type: initial encounter Rib fracture type: single rib Fracture type: closed Qualified Code(s): S22.32XA - Fracture of one rib, left side, initial encounter for closed fracture Print Language Print Language: Moldovan Discharge ED Provider: Ezequiel Armenta Adult HPI General Chief complaint: Fall Stated complaint: fall, L side pain Time Seen by Provider: 08/14/24 06:06 History of Present Illness HPI narrative: 68-year-old male with history of skin problem with his feet, COPD, diabetes presents with left-sided rib pain after a fall yesterday. He reports he has t rouble with his feet and it has caused him to fall in the past. He denies any loss of consciousness. Reports he has been having chest pain and shortness of breath since the fall. Denies head trauma. Related Data Home Medications ?Medication ?Instructions ?Recorded ?Confirmed insulin syringe-needle U-100 1 mL 05/07/22 07/21/24 31 gauge x 5/16 (BD Insulin Syringe Ultra-Fine) nitroglycerin 0.4 mg sublingual 0.4 mg sublingual Q5M PRN CP 05/07/22 07/21/24 tablet blood sugar diagnostic (True 06/12/22 07/21/24 Metrix Glucose Test Strip) tacrolimus 0.1 % topical ointment topical 09/02/23 07/21/24 cetirizine 10 mg capsule (Zyrtec) 10 mg PO DAILY PRN 11/06/23 07/21/24 dupilumab 300 mg/2 mL subcutaneous mg SQ 07/21/24 07/21/24 pen injector (Dupixent) insulin syringe-needle U-100 1 mL #10 ea 07/21/24 07/21/24 31 gauge x 15/64 (BD Veo Insulin Syringe Ultra-Fine) Previous Rx's ?Medication ?Instructions ?Recorded blood sugar diagnostic (OneTouch #100 ea 11/15/22 Ultra Test strips) metoprolol succinate 100 mg 100 mg PO DAILY #90 tabs 09/02/23 tablet,extended release 24 hr (Toprol XL) valsartan 320 1 tab PO DAILY #90 tabs 09/02/23 mg-hydrochlorothiazide 25 mg tablet urea 40 % topical cream 1 applic topical BID 30 days #28 02/05/24 grams fexofenadine 180 mg tablet 180 mg PO DAILY #30 tabs 03/04/24 rivaroxaban 2.5 mg tablet (Xarelto) See Rx Instructions .Route 03/04/24 .COMPLEX #90 tabs esomeprazole magnesium 40 mg See Rx Instructions .Route 03/09/24 capsule,delayed release .COMPLEX #90 caps insulin human U-100 NPH-regulr See Rx Instructions .Route 03/13/24 70-30 mix 100 unit/mL subcutaneous .COMPLEX #40 mL susp (Humulin 70/30 U-100 Insulin) montelukast 10 mg tablet See Rx Instructions .Route 03/17/24 .COMPLEX #90 tabs acitretin 25 mg capsule 25 mg PO DAILY #30 caps 04/24/24 ezetimibe 10 mg tablet See Rx Instructions .Route 06/22/24 .COMPLEX #90 tabs prednisone 20 mg tablet 20 mg PO BID #14 tabs 07/21/24 tretinoin 0.1 % topical cream 1 applic topical HS #45 grams 07/21/24 metformin 500 mg tablet See Rx Instructions .Route 07/22/24 .COMPLEX #60 tabs empagliflozin 25 mg tablet See Rx Instructions .Route 07/29/24 (Jardiance) .COMPLEX #90 tabs fluticasone furoate 200 See Rx Instructions .Route 07/29/24 mcg-vilanterol 25 mcg/dose .COMPLEX #60 blisters inhalation powder (Breo Ellipta) lidocaine 5 % topical patch 1 patch topical DAILY PRN pain #30 08/14/24 ea methocarbamol 500 mg tablet 1,000 mg (2 x 500 mg) PO Q6H PRN 08/14/24 pain #30 tabs Allergies Allergy/AdvReac Type Severity Reaction Status Date / Time Cephalosporins Allergy Mild hives, Verified 07/21/24 13:44 (CEPHALOSPORINS) itching penicillin G (PENICILLIN G) Allergy Mild swelling Verified 07/21/24 13:44 lisinopril AdvReac Severe Verified 07/21/24 13:[address] [facility] Disclaimer: The information contained in this section may have been updated after the albert ent was seen, as this information can be updated by other users. Medical History (Updated 08/14/24 @ 06:53 by Ezequiel Armenta MD) Palmoplantar pustular psoriasis Encounter for pre-operative cardiovascular clearance SVT (supraventricular tachycardia) Nasal polyp Bilateral tinnitus Dizziness Diabetes mellitus, type 2 Encounter for cholecystectomy Lymphoma of lymph nodes Stomach disease Rapid heart rate Hyperlipidemia Seasonal allergies Psoriasiform eczema Arthritis Emphysema/COPD Diabetes 1.5, managed as type 2 Hypertension Surgical History History of colonoscopy History of esophagogastroduodenoscopy (EGD) History of cholecystectomy H/O left heart catheterization by ventricular puncture Family History Other No significant family history Social History Smoking Status: Current every day smoker alcohol intake: current substance use type: denies use current occupational status: retired Travel in the last 8 weeks: None caffeine: Yes Have you lived/traveled outside [place] in past 30 days?: No Contact w/someone who lives/traveled outside [place] past 30 days?: No Exposure to someone with infectious disease in past 14 days?: No Do you have a fever (greater than 100.4 F or 38 C)?: No Have you tested positive for COVID-19: No Exposed to someone with COVID-19 in past 14 days?: No Do you have a sore throat?: No Do you have a cough?: No Do you have any weakness?: No Do you have any diarrhea?: No Are you experiencing any unusual bleeding?: No Do you have any muscle aches/pain?: No Do you have any abdominal pain?: No Are you experiencing loss of taste or smell?: No Other Medical History Have you received the Pneumonia Vaccine: Yes ROS Obtained: Yes All systems reviewed & no additional complaints except as documented Physical Exam General General appearance: alert and in no apparent distress Head Head exam: atraumatic and normocephalic Eye Eye exam: Present normal appearance, PERRL and EOMI ENT ENT exam: Present normal oropharynx and normal external ear exam Neck Neck exam: Present normal inspection and full ROM Chest Chest inspection: Present normal inspection, symmetric chest wall rise and tenderness (Left lateral chest wall) Respiratory Respiratory exam: Present normal lung sounds bilaterally; Absent respiratory distress Cardiovascular Cardiovascular exam: Present regular rate and normal rhythm Abdominal Exam Abdominal exam: Present soft; Absent distention, tenderness or guarding Extremities Exam Extremities exam: Present normal inspection; Absent edema or joint swelling Back Exam Back exam: Present normal inspection; Absent tenderness Neurological Exam Neurological exam: Present alert and oriented X3; Absent motor sensory deficit Psychiatric Psychiatric exam: Present normal affect and normal mood Skin Skin exam: Present warm, dry and normal color Lymphatic Lymphatic Findings: no adenopathy Medical Decision Making Medical Records Medical records reviewed: Yes I reviewed the patient's medical records. Screening: Per USPSTF and CDC recommendations, given the prevalence of disease in our region, it is our hospital?s policy to screen for HIV and viral Hepatitis for all patients aged 18 and over and those with ongoing risk factors. Marvin Inquiry Pt receiving controlled substance: No Marvin was queried for this patient: No Vital Signs: 08/14/24 06:08 08/14/24 06:11 08/14/24 06:15 Temperature 97.8 F Temperature Source Oral Pulse Rate 92 H 82 Pulse Rate [Right Brachial] 90 Respiratory Rate 20 Blood Pressure 164/98 H 145/79 H Blood Pressure [Right Arm] 164/98 H Blood Pressure Mean [Right Arm] 120 02 Sat by Pulse Oximetry 99 99 97 Oxygen Delivery Method Room Air Room Air Room Air 08/14/24 06:30 08/14/24 07:16 Temperature 97.8 F Temperature Source Pulse Rate 79 80 Pulse Rate [Right Brachial] Respiratory Rate 13 Blood Pressure 148/85 H 156/89 H Blood Pressure [Right Arm] Blood Pressure Mean [Right Arm] 02 Sat by Pulse Oximetry 98 Oxygen Delivery Method Room Air Room Air Lab Data Lab results reviewed: Yes I reviewed the patient's lab results. Orders (Tests/Meds): ED MEDICATIONS Discontinued Medications Generic Name Dose Route Start Last Admin Trade Name Freq PRN Reason Stop Dose Admin Acetaminophen 1,000 mg 08/14/24 06:12 08/14/24 06:19 Acetaminophen 500mg Tab PO 08/14/24 06:13 1,000 mg ONCE ONE Administration Ketorolac Tromethamine 15 mg 08/14/24 06:12 08/14/24 06:19 Ketorolac 30mg/Ml Vial IM 08/14/24 06:13 15 mg ONCE ONE Administration Methocarbamol 500 mg 08/14/24 06:13 08/14/24 06:20 Methocarbamol 500mg Tablet PO 08/14/24 06:14 500 mg ONCE ONE Administration ORDERS Category Date Time Status CXR 2 view (NOT portable) [XR chest 2V] Stat Exams 08/14/24 06:12 Completed XR ribs LT min 3V w CXR1V Stat Exams 08/14/24 06:38 Completed Medical Decision Narrative: 68-year-old male with history of type 2 diabetes hypertension hyperlipidemia difficulty ambulating secondary to foot pain presents for fall yesterday with traumatic left lateral chest pain. History was obtained via interactive discussion with patient, chart review. On arrival, patient is [afebrile, hemodynamically stable, satting appropriately, alert, oriented x4, GCS 15], moving all extremities spontaneously. Full physical exam performed and significant for left rib tenderness. Differential includes but is not limited to rib fracture, dislocation, pneumothorax, pulmonary contusion. I considered obtaining trauma imaging as patient is on blood thinners, but given duration of time since the accident and the fact that he did not sustain any significant head trauma, did not lose consciousness, has no other traumatic complaints, I did not feel that CT angiogram imaging was indicated at this time. Patient was given Tylenol Toradol Robaxin for symptomatic management and correction of underlying abnormalities. Workup initiated including radiographs of the chest and ribs. On my independent interpretation, patient appears to have 1 or 2 left rib fractures. His findings were communicated with patient. He was instructed on how to use a incentive spirometer and was discharged with prescription for lidocaine patches and Robaxin. Patient was given strict return precautions and discharged in stable condition. Procedures Risk/Benefits of Procedure(s) Were Explained: Yes Critical Care Critical Care Time Critical Care Time: No
[2024-08-14 06:11] VITALS: BP 164/98; PULSE 92; O2SAT 99
--- NOTE | 2024-08-14 06:12 | XR_ITS ---
FINAL REPORT CLINICAL HISTORY: fall, left rib pain COMPARISON: 01/21/2023 FINDINGS: PA and lateral views of the chest were obtained. The cardiac and mediastinal silhouettes are within normal limits. The lungs are clear. There is no pleural effusion or pneumothorax. IMPRESSION: No radiographic evidence of acute cardiac or pulmonary disease. Reviewed, Interpreted and Dictated by Sita Cortez MD Transcribed by Cari Swenson Authenticated and [facility]
--- NOTE | 2024-08-14 06:13 | PC.NURSE ---
Pt has red raised rash on entire body. States he has been seeing typing checker for rash and pain with no improvement. Skin otherwise pink warm and dry. Speech clear and appropriate. Resp full and easy. No step off or crepitis palpated in left rib area
[2024-08-14 06:15] VITALS: BP 145/79; PULSE 82; O2SAT 97
[2024-08-14] MEDS: KETOROLAC 30MG/ML VIAL 15 MG IM (06:19)
[2024-08-14] MEDS: ACETAMINOPHEN 500MG TAB 1000 MG PO (06:19)
[2024-08-14] MEDS: METHOCARBAMOL 500MG TABLET 500 MG PO (06:20)
[2024-08-14 06:30] VITALS: BP 148/85; PULSE 79; O2SAT 98
--- NOTE | 2024-08-14 06:38 | XR_ITS ---
FINAL REPORT CLINICAL HISTORY: left rib pain FINDINGS: LEFT RIBS 3 views of the left ribs were obtained. There is a nondisplaced fracture of the posterior left 11th rib. No other fracture is identified. There is no pneumothorax. IMPRESSION: Posterior left 11th rib fracture. Reviewed, Interpreted and Dictated by Sita Cortez MD Transcribed by Cari Swenson Authenticated and [facility] [place] [place]
--- NOTE | 2024-08-14 06:39 | PC.NURSE ---
pt taken to radiology at this time via wheelchair
[2024-08-14 07:16] VITALS: BP 156/89; PULSE 80; RESP 13; TEMP 36.6; O2SAT 96
== END 2024-08-14 07:18 | disposition home or self-care (01) ==
PROVIDERS: Emergency Provider Emergency Medicine
DX: S22.32XA Fracture of one rib, left side, initial encounter for closed fracture (principal); R06.02 Shortness of breath; R07.9 Chest pain, unspecified; M79.671 Pain in right foot; M79.672 Pain in left foot; Z72.0 Tobacco use; W19.XXXA Unspecified fall, initial encounter; Y93.89 Activity, other specified; Y92.9 Unspecified place or not applicable
CPT/HCPCS: 71046; 71101; 96372; 99283; J1885

== ENCOUNTER 2024-09-30 14:46 | Outpatient (CLI) | payer MEDICARE, MEDICAID, SELFPAY ==
[2024-09-30 13:11] LABS: Basophils % 0.2 % (0.1-2.0); Eosinophils # 0.1 K/mm3 (0.0-0.4); Eosinophils % 0.9 % (0.1-12.0); Hematocrit 39.9 % (42.0-52.0); Lymphocytes # 1.5 K/mm3 (0.7-4.5); Lymphocytes % 15.6 % (10-50); Mean Corpuscular HGB Conc 35.1 g/dL (31.8-35.4); Mean Corpuscular Hemoglobin 33.4 pg (27.0-31.2); Mean Corpuscular Volume 95.2 fl (80-94); Mean Platelet Volume 10.8 fl (7.4-10.4); Monocytes # 0.9 K/mm3 (0.1-1.0); Monocytes % 9.2 % (1.7-9.3); Neutrophils # 6.9 K/mm3 (1.8-7.8); Neutrophils % 73.6 % (37.0-80.0); Nucleated Red Blood Cells # 0 10^3/uL; Nucleated Red Blood Cells % 0 %; Platelet Count 280 K/mm3 (142-424); Red Blood Count 4.19 M/mm3 (4.60-6.20); Red Cell Distribution Width 13.7 % (11.5-17.5); Red Cell Distribution Width-SD 47.9 fL; White Blood Count 9.3 K/mm3 (4.8-10.8)
[2024-09-30 13:42] LABS: Albumin Level 4.4 g/dl (3.5-5.0)
[2024-09-30 13:45] LABS: Alanine Aminotransferase 25 U/L (12-78); Alkaline Phosphatase 79 U/L (38-126); Aspartate Amino Transferase 24 U/L (17-59); Bilirubin,Direct 0.3 mg/dl (0.0-0.4); Bilirubin,Indirect 0.3 mg/dL (0.0-0.9); Bilirubin,Total 0.6 mg/dl (0.2-1.3); Bilirubin,Unconjugated 0.4 mg/dL (0.0-1.1); Cholesterol 181 mg/dl (140-200); Total Protein,Serum 7.1 g/dl (6.3-8.2); Triglycerides 228 mg/dl (30-150); VLDL Cholesterol 46 mg/dL (0-40)
[2024-09-30 13:46] LABS: Chol/HDL Ratio 2.7 (1-3.5); HDL Cholesterol 67 mg/dl (40-60)
[2024-09-30 13:47] LABS: Erythrocyte Sedimentation Rate 54 mm/hr (0-20)
[2024-09-30 13:57] LABS: Direct LDL Cholesterol 66.85 mg/dL (100-129)
[2024-09-30 15:51] LABS: Uric Acid 7.8 mg/dl (3.5-8.5)
[2024-10-01 08:13] LABS: RA Latex Turbid. 22.1 IU/mL (<14.0)
[2024-10-02 08:22] LABS: Antinuclear Antibodies, IFA Negative (.)
[2024-10-05 17:10] LABS: Histamine, Plasma 1.17 ng/mL (<1.00)
== END 2024-09-30 23:59 | disposition home or self-care (01) ==
LOC: LAB.DROPOF 14:47
PROVIDERS: Nurse Practitioner Family; PCP Nurse Practitioner Family; Visit Provider Nurse Practitioner Family
DX: L50.9 Urticaria, unspecified (principal); M25.551 Pain in right hip; M25.552 Pain in left hip; L40.8 Other psoriasis; I10 Essential (primary) hypertension; E78.5 Hyperlipidemia, unspecified; F17.200 Nicotine dependence, unspecified, uncomplicated
CPT/HCPCS: 80061; 80076; 83088; 84550; 85025; 85651; 86038; 86431

== ENCOUNTER 2024-10-02 10:08 | Outpatient (CLI) | payer MEDICARE, MEDICAID, SELFPAY ==
--- NOTE | 2024-10-02 10:11 | XR_ITS ---
FINAL REPORT CLINICAL HISTORY: left hip pain x 4 days, nki COMPARISON: None FINDINGS: LEFT HIP: Three views of the left hip, including an AP view of the pelvis, demonstrate no acute fracture or dislocation. There are moderate degenerative changes. The visualized bony structures are well aligned. No soft tissue abnormality is seen. IMPRESSION: Degenerative changes without acute bony abnormality. Reviewed, Interpreted and Dictated by Marnie Mcconnell MD Transcribed by Stormy Pop Authenticated and [facility]
--- NOTE | 2024-10-02 10:11 | XR_ITS ---
FINAL REPORT CLINICAL HISTORY: Right hip pain x 4 days, nki COMPARISON: None FINDINGS: RIGHT HIP Three views of the right hip, including an AP view of the pelvis, with an AP view of the pelvis demonstrate no acute fracture or dislocation. There are mild degenerative changes. The visualized bony structures are well aligned. No soft tissue abnormality is seen. IMPRESSION: Degenerative changes without acute bony abnormality. Reviewed, Interpreted and Dictated by Marnie Mcconnell MD Transcribed by Stormy Pop Authenticated and [facility]
== END 2024-10-02 23:59 | disposition home or self-care (01) ==
LOC: RAD 10:10
PROVIDERS: PCP Nurse Practitioner Family; Visit Provider Nurse Practitioner Family
DX: M25.551 Pain in right hip (principal); M25.552 Pain in left hip
CPT/HCPCS: 73502

== ENCOUNTER 2025-03-04 13:56 | Outpatient (CLI) | payer MEDICARE, MEDICAID, SELFPAY ==
[2025-03-04 14:47] LABS: Hematocrit 46.6 % (42.0-52.0); Hemoglobin 16.3 g/dL (14.1-18.0); Immature Granulocytes % 0.5 %; Mean Corpuscular HGB Conc 35.0 g/dL (31.8-35.4); Mean Corpuscular Hemoglobin 33.3 pg (27.0-31.2); Mean Corpuscular Volume 95.3 fl (80-94); Nucleated Red Blood Cells % 0 %; Platelet Count 315 K/mm3 (142-424); Red Blood Count 4.89 M/mm3 (4.60-6.20); Red Cell Distribution Width-SD 47.7 fL; White Blood Count 11.2 K/mm3 (4.8-10.8)
[2025-03-04 15:34] LABS: Albumin Level 4.4 g/dl (3.5-5.0); Chloride 101 mmol/L (98-107); Potassium 4.4 mmoL/L (3.5-5.1); Sodium 132 mmol/L (136-145)
[2025-03-04 15:36] LABS: Alanine Aminotransferase 28 U/L (12-78); Aspartate Amino Transferase 37 U/L (17-59); Blood Urea Nitrogen 23 mg/dl (9-20); Creatinine,Serum 1.30 mg/dl (0.66-1.25); Estimated Glomerular Filt Rate 55 ml/min (>60); GFR (African American) 67 ML/MIN (>60)
[2025-03-04 15:37] LABS: Albumin/Globulin Ratio 1.8 (1.1-1.8); Alkaline Phosphatase 60 U/L (38-126); Anion Gap 14.4 mEq/L (5-15); Bilirubin,Total 0.6 mg/dl (0.2-1.3); Calcium 9.9 mg/dl (8.4-10.2); Carbon Dioxide 21 mmol/L (22.0-30.0); Cholesterol 226 mg/dl (140-200); Globulin 2.5 g/dL (1.3-3.2); Glucose 272 mg/dl (74-100); HDL Cholesterol 57 mg/dl (40-60); Magnesium 1.6 mg/dl (1.6-2.3); Total Protein,Serum 6.9 g/dl (6.3-8.2); Triglycerides 224 mg/dl (30-150)
== END 2025-03-04 23:59 | disposition home or self-care (01) ==
LOC: LAB 13:57
PROVIDERS: PCP Internal Medicine; Visit Provider Dermatology
DX: R63.4 Abnormal weight loss (principal); Z79.899 Other long term (current) drug therapy
CPT/HCPCS: 36415; 80053; 80061; 80074; 83735; 85025; 86480; 87389